=== PATIENT | female | born 1990 | race Caucasian/White ===

== ENCOUNTER 2017-03-31 20:21 | Emergency (ER) | payer BC ==
[~2017-03-31] VITALS: Ht 167.6 cm; Wt 63.3 kg
[2017-03-31 20:23] VITALS: BP 118/81
[2017-03-31] MEDS ORDERED: LIDOCAINE 1%-EPI 1:100K, 20ML SQ ONE (21:00)
[2017-03-31] MEDS ORDERED: OXYcodone/APAP 5/325MG TABLET PO ONE (21:00)
[2017-03-31] MEDS ORDERED: CEFAZOLIN 1,000 MG IM ONE (21:00)
[2017-03-31] MEDS ORDERED: DIPH,PERTUSS(ACELL),TET VAC/PF 0.5 ML IM-VACC ONE ×2 (21:00→21:09)
[2017-03-31] MEDS ORDERED: OXYcodone/APAP 5/325MG TABLET ONE (21:08)
[2017-03-31] MEDS ORDERED: CEFAZOLIN 1,000 MG ONE (21:09)
[2017-03-31] MEDS ORDERED: LIDOCAINE 1%, 20ML ONE (21:09)
== END 2017-03-31 22:14 | disposition home or self-care (01) ==
LOC: ED 22:00
DX: S61.411A Laceration without foreign body of right hand, initial encounter (principal); W54.0XXA Bitten by dog, initial encounter; Y93.89 Activity, other specified; Y92.89 Other specified places as the place of occurrence of the external cause; Y99.8 Other external cause status
CPT/HCPCS: 12002; 73130; 99284; J3490